=== PATIENT | male | born 1985 | race Two or more races ===

== ENCOUNTER 2019-10-15 18:51 | Emergency (ER) | payer MEDICARE ==
[~2019-10-15] VITALS: Ht 172.7 cm; Wt 73.0 kg
[2019-10-15] MEDS ORDERED: LORAZEPAM 2MG/ML CPJ IV STA (19:52)
[2019-10-15] MEDS ORDERED: SODIUM CHLORIDE 0.9% 1,000 ML IV ONE ×2 (19:52→23:53)
[2019-10-15] MEDS ORDERED: ONDANSETRON HCL 4MG/2ML INJ IV STA (19:52)
[2019-10-15] MEDS ORDERED: OLANZAPINE 10 MG/VIAL IM STA (19:52)
[2019-10-15 20:17] LABS: BASOPHILS % 1.1 % (0.0-2.0); EOSINOPHILS % 1.5 % (0.0-5.0); HEMATOCRIT. 43.3 % (42.0-52.0); HEMOGLOBIN. 14.8 g/dL (14.0-18.0); LYMPHOCYTES % 24.2 % (20.0-50.0); MEAN CORPUSCULAR HEMOGLOBIN 30.9 pg (28.0-32.0); MEAN CORPUSCULAR VOLUME 90.3 fL (80.0-94.0); MEAN PLATELET VOLUME 8.8 fl (7.4-10.4); MONOCYTES % 12.9 % (2.0-8.0); NEUTROPHILS % 60.3 % (40.0-76.0); PLATELET 326 x1000/uL (130-400); RED CELL DISTRIBUTION WIDTH 14.5 % (11.6-14.6)
[2019-10-15 20:19] LABS: CHLORIDE 109 mEq/L (98-107)
[2019-10-15 20:24] LABS: ETHANOL BLOOD 71 mg/dL
[2019-10-15 20:31] LABS: CREATINE KINASE MB FRACTION 10.6 ng/mL (0.5-3.6)
[2019-10-15 20:40] LABS: CREATINE KINASE 3637 IU/L (39-308)
[2019-10-15 21:59] LABS: CLARITY URINE CLOUDY (CLEAR); COLOR URINE DARK YELLOW (YELLOW); KETONES URINE TRACE (NEGATIVE); LEUKOCYTE ESTERASE URINE NEGATIVE (NEGATIVE); NITRITE URINE NEGATIVE (NEGATIVE); OCCULT BLOOD URINE NEGATIVE (NEGATIVE); PROTEIN URINE 1+ (NEGATIVE); SPECIFIC GRAVITY URINE 1.032 (1.005-1.030); UROBILINOGEN URINE 0.2 E.U./dL (0.2-1.0)
[2019-10-15 22:11] LABS: *AMPHETAMINES SCREEN URINE PRESUMTIVE POSITIVE (NEGATIVE); *BARBITURATES SCREEN URINE NEGATIVE (NEGATIVE); *COCAINE SCREEN URINE NEGATIVE (NEGATIVE)
[2019-10-15 22:12] LABS: *BENZODIAZEPINES SCREEN URINE NEGATIVE (NEGATIVE); CANNABINOID URINE SCREEN PRESUMTIVE POSITIVE (NEGATIVE); METHADONE URINE SCREEN NEGATIVE (NEGATIVE); OPIATES URINE SCREEN NEGATIVE (NEGATIVE); PHENCYCLIDINE URINE SCREEN NEGATIVE (NEGATIVE)
[2019-10-16 00:42] LABS: CREATINE KINASE 2775 IU/L (39-308)
[2019-10-16 05:20] VITALS: BP 120/79
== END 2019-10-16 05:22 | disposition home or self-care (01) ==
LOC: ER 18:51
DX: G92 Toxic encephalopathy (principal); T43.621A Poisoning by amphetamines, accidental (unintentional), initial encounter; M62.82 Rhabdomyolysis; Y92.9 Unspecified place or not applicable
CPT/HCPCS: 36415; 70450; 80053; 80305; 80320; 81003; 82550; 82553; 83690; 84443; 84484; 85025; 93005; 96361; 96372; 96374; 96375; 99284; J2060; J2405; J3490; J7030; G0480